=== PATIENT | female | born 1980 | race Caucasian/White ===

== ENCOUNTER 2018-11-23 12:21 | Emergency (ER) | payer OTHER ==
[~2018-11-23] VITALS: Ht 165.1 cm; Wt 65.8 kg
[~2018-11-23 12:21] MED LIST: HYDROCODONE-AP1 EAC6 PO; NAPROSYN500 MG PO
[2018-11-23] MEDS ORDERED: PAXIL10 MG PO (12:38)
[2018-11-23] MEDS ORDERED: AUGMENTIN 500-1 EACH PO (13:00)
[2018-11-23 13:20] VITALS: BP 123/79
== END 2018-11-23 13:21 | disposition home or self-care (01) ==
LOC: M.ERS 12:21
DX: S51.811A Laceration without foreign body of right forearm, initial encounter (principal); S01.81XA Laceration without foreign body of other part of head, initial encounter; Z90.49 Acquired absence of other specified parts of digestive tract; W54.0XXA Bitten by dog, initial encounter; Y93.89 Activity, other specified; Y92.89 Other specified places as the place of occurrence of the external cause; Y99.8 Other external cause status

== ENCOUNTER 2019-02-04 18:27 | Emergency (ER) | payer OTHER ==
[~2019-02-04] VITALS: Ht 165.1 cm; Wt 70.3 kg
[~2019-02-04 18:27] MED LIST changes: +AUGMENTIN 500-1 EACH PO; +PAXIL10 MG PO
[2019-02-04] MEDS ORDERED: ONDANSETRON HCL4 M2 PO (19:50)
[2019-02-04 20:10] VITALS: BP 134/57
== END 2019-02-04 20:11 | disposition home or self-care (01) ==
LOC: M.ERS 18:27
DX: T16.2XXA Foreign body in left ear, initial encounter (principal); Z90.49 Acquired absence of other specified parts of digestive tract; X58.XXXA Exposure to other specified factors, initial encounter; Y93.89 Activity, other specified; Y92.89 Other specified places as the place of occurrence of the external cause; Y99.8 Other external cause status